=== PATIENT | male | born 1955 | race Caucasian/White ===

== ENCOUNTER 2016-10-15 15:30 | Inpatient (IN) | payer OTHER ==
[~2016-10-15] VITALS: Ht 190.5 cm; Wt 118.8 kg
[~2016-10-15 15:30] MED LIST: ANTIBIOTIC; BACTRIM DS 8001 TA1 PO; CATAPRES0.1 MG PO; CATAPRES0.2 MG PO; CIPROFLOXACIN500 MG PO; DAYPRO600 M1 PO; DIABETA5 MG PO; FAMVIR500 MG PO; FIORICET 325 MG1 TAB PO; FLEXERIL10 MG PO; HYDROCODONE BIT1 T11 PO; IBU-8800 MG PO; MEDROL DOSEPAK4 MG PO; METFORMIN1000 MG PO; MICRONASE2.5 MG PO; MOTRIN600 MG; NKHM; NYSTATIN CREAM15 GM T; Orphenadrine C100 MG PO; PROSCAR5 MG PO; ROBAXIN750 MG PO; SUBOXONE 8 MG-1 EACH SL; TAMSULOSIN HCL0.4 MG PO; TOBREX OPHTH S2.5 ML OPH; ULTRAM50 MG PO; VICODIN 5/500 505 MG PO; ZITHROMAX Z PA250 MG PO; ZOFRAN ODT4 MG SL; ZYLOPRIM100 MG PO; ZYRTEC10 MG PO
[2016-10-15 15:36] VITALS: BP 139/90
[2016-10-15 16:07] LABS: BASO % 0.4 % (0.0-1.0); EOS # 0.1 10*3/uL (0.0-0.4); EOS % 1.6 % (1.0-4.0); HEMATOCRIT 44.2 % (42.0-52.0); HEMOGLOBIN 14.3 g/dl (14.0-18.0); LYMPH # 2.5 10*3/uL (1.3-4.4); LYMPH % 37.3 % (27.0-41.0); MEAN CELL VOLUME 81.7 fl (80.0-94.0); MEAN CORPUSCULAR HGB 26.4 pg (27.0-31.0); MEAN CORPUSCULAR HGB CONC 32.4 g/dl (33.0-37.0); MEAN PLATELET VOLUME 9.5 fl (9.6-12.3); MONO # 0.5 10*3/uL (0.1-1.0); MONO % 7.2 % (3.0-9.0); NEUT # 3.5 10*3/uL (2.3-7.9); NEUT % 53.1 % (47.0-73.0); PLATELET COUNT AUTOMATED 179 10*3/uL (130-400); RED BLOOD COUNT 5.41 10*6/uL (4.50-5.90); RED CELL DISTRI WIDTH 12.1 % (0-14.5); WHITE BLOOD COUNT 6.7 10*3/uL (4.8-10.8)
[2016-10-15 16:18] LABS: INTERNATIONAL NORM RATIO 0.9 (2.0-3.5); PROTHROMBIN TIME 9.6 SECONDS (9.0-12.4)
[2016-10-15 16:25] LABS: ALBUMIN 3.8 gm/dl (3.1-4.5); ALKALINE PHOSPHATASE 96 U/L (45-117); BILIRUBIN, TOTAL 0.3 mg/dl (0.2-1.0); BUN 20 mg/dl (7-24); CARBON DIOXIDE 28 mmol/L (21-32); CHLORIDE 101 mmol/L (98-107); EST GLOM FILT AFRICAN AMERICAN > 60 ml/min; GLUCOSE 236 mg/dL (65-99); MAGNESIUM 1.6 mg/dL (1.5-2.1); POTASSIUM 4.9 mmol/L (3.5-5.1); SGOT/AST 20 IU/L (3-35); SGPT/ALT 34 U/L (12-78); SODIUM 139 mmol/L (136-145); TOTAL PROTEIN 7.5 gm/dL (6.4-8.2)
[2016-10-15 16:26] VITALS: BP 129/80
[2016-10-15 17:10] VITALS: BP 140/80
[2016-10-15] MEDS ORDERED: TOUJEO300 U/ML SC (17:18)
[2016-10-15 18:41] LABS: CKMB 1.5 ng/ml (0.5-3.6)
[2016-10-15 20:00] VITALS: BP 127/61
[2016-10-16] VITALS: BP 117/73
[2016-10-16 00:41] LABS: CKMB 1.2 ng/ml (0.5-3.6)
[2016-10-16 07:46] VITALS: BP 110/66
[2016-10-16 12:00] VITALS: BP 130/72
[2016-11-10] MEDS ORDERED: ASPIRIN81 M1 PO (13:08)
== END 2016-10-16 14:10 | disposition home or self-care (01) | DRG 206 ==
LOC: ED 15:30 → EDHOLD 16:42 → 4E 16:46
PROVIDERS: Internal Medicine; Registered Nurse
DX: M94.0 Chondrocostal junction syndrome [Tietze] (principal); E11.65 Type 2 diabetes mellitus with hyperglycemia; I10 Essential (primary) hypertension; E78.5 Hyperlipidemia, unspecified; E66.9 Obesity, unspecified; Z68.34 Body mass index [BMI] 34.0-34.9, adult; Z79.899 Other long term (current) drug therapy; Z98.890 Other specified postprocedural states; Z88.0 Allergy status to penicillin; Z80.42 Family history of malignant neoplasm of prostate

== ENCOUNTER 2017-09-02 10:53 | Emergency (ER) | payer OTHER ==
[~2017-09-02] VITALS: Ht 190.5 cm; Wt 117.9 kg
[~2017-09-02 10:53] MED LIST changes: +ASPIRIN81 M1 PO; +TOUJEO300 U/ML SC
[2017-09-02 11:00] VITALS: BP 120/77
[2017-09-02] MEDS ORDERED: CLINDAMYCIN HC300 MG PO (11:05)
[2017-09-02] MEDS ORDERED: ANAPROX DS550 MG PO (11:05)
== END 2017-09-02 11:12 | disposition home or self-care (01) ==
LOC: ED 10:53
DX: L72.3 Sebaceous cyst (principal); R22.31 Localized swelling, mass and lump, right upper limb; Z88.0 Allergy status to penicillin; Z79.82 Long term (current) use of aspirin; Z79.899 Other long term (current) drug therapy

== ENCOUNTER 2017-12-29 10:19 | Inpatient (IN) | payer OTHER ==
[2017-12-29] VITALS (7 sets, daily range): BP systolic 116–146; BP diastolic 61–86
[~2017-12-29] VITALS: Ht 190.5 cm; Wt 120.7 kg
--- NOTE | ~2017-12-29 | CON ---
[place], [place] REPORT OF CONSULTATION NAME: [facility]ZU[id number] UNIT #: [id number] ROOM: 405 DOCTOR: MELIA DAVALOS MD BIRTHDATE: [birth year] DOS: 12/30/2017 REASON FOR CONSULTATION: Peripheral edema and chest discomfort. HISTORY OF PRESENT ILLNESS: The patient is a 62-year-old man who has no previously documented coronary disease. He did have an evaluation in October and November of 2016 for atypical chest discomfort. An echocardiogram and stress test were felt to be low risk. Symptoms resolved. About a week ago, the patient's father . They took [place], [place] is about [place] [address] from here. [place] was [place] on the farm. The patient states that he did spend a lot of time walking and driving over the last few days. During this time, he did have some intermittent chest discomfort, which he described as an ache in his chest. It was not associated with dyspnea, diaphoresis or lightheadedness and was not exertional. He specifically stated that he [place] [facility] [place] [facility] and did not have any chest discomfort with that. Upon returning home in the last 48 hours, he noticed that his ankles were swollen. He became concerned and therefore came to the Emergency Room. Since he has been here, his electrocardiogram has been unremarkable. His cardiac troponin levels have been normal and a proBNP level was only minimally elevated at 238. PAST MEDICAL HISTORY: Includes: 1. Type 2 diabetes mellitus, which has been poorly controlled. 2. Benign prostatic hypertrophy. 3. Hyperlipidemia. 4. Obesity. 5. Exercise myocardial perfusion examination, 11/10/2016, ejection fraction 50%, no ischemia, low risk examination. 6. Echocardiogram, 12/04/2016, normal left ventricular size with ejection fraction 65%, stage 1 diastolic relaxation abnormalities, aortic sclerosis, but no other valve abnormalities. MEDICATIONS: Prior to admission: Metformin 1000 mg b.i.d., naproxen 550 mg b.i.d. p.r.n., tamsulosin 0.4 mg daily, Suboxone 8 mg sublingually q. 12 hours and glargine Insulin 24 units at bedtime. ALLERGIES: The patient lists allergies to PENICILLINS. FAMILY HISTORY: Negative for early coronary disease. His father had prostate cancer. SOCIAL HISTORY: The patient lives alone. As noted, he just returned home after the of his father [place] their [place]. The patient states that he has not consumed any alcohol since he was diagnosed as having diabetes 3 years ago and does not smoke or use illicit drugs. PHYSICAL EXAMINATION: GENERAL: Reveals well-nourished white male who is awake, alert and oriented. VITAL SIGNS: Pulse is 72 and regular, blood pressure is 141/78. He is [place], [place] REPORT OF CONSULTATION NAME: ANANTH OZUNA UNIT #: [id number] ROOM: 405 DOCTOR: MELIA DAVALOS MD BIRTHDATE: [birth year] afebrile. He weighs 120.6 kg and has a body mass index of 33.2. HEENT: Normocephalic and atraumatic. Extraocular muscles are intact. Sclerae are clear. Pupils equal, round and react to light. The oral mucosa is moist. Tongue is midline. NECK: Supple. He has no jugular distention. Carotids are full. He has no bruits. He has no neck or supraclavicular masses. LUNGS: Respirations are unlabored. His chest is clear to auscultation and percussion. He has no presacral edema or chest wall tenderness. CARDIOVASCULAR: His heart has a regular rhythm. He has a fourth heart sound, but no third heart sound or murmur. The PMI is not displaced. He has no precordial heave, lift or thrill. ABDOMEN: Soft and normally active without masses, organomegaly or bruits. EXTREMITIES: Showed trace edema of the ankles. Pedal pulses are easily palpated in the feet bilaterally. IMPRESSIONS: 1. Atypical chest pain. The patient denies any recent change in his exercise capacity and states that the pains were not exertional. They occurred after the recent of his father and he has no acute EKG changes or elevation in troponin. A stress test within the last year was a low risk exam. It is very unlikely that his current symptoms are cardiac in origin. 2. Pedal edema, most likely due to dietary indiscretion and traveling for long periods of time recently in an automobile. This is resolving spontaneously. 3. Type 2 diabetes mellitus, on insulin. PLAN: I will repeat an echocardiogram for left ventricular function and repeat a chest x-ray since the initial chest x-ray suggested the possibility of pneumonia. If those studies are normal, then no further cardiac workup would be considered. Specifically, I do not believe the patient requires a stress test at this time. I thank the hospitalist physicians for asking our advice regarding the patient's care. MELIA DAVALOS MD CM:CONSTR:REPORT OF CONSULTATION 1411 12/30/17 1430 interface
[~2017-12-29 10:19] MED LIST changes: +ANAPROX DS550 MG PO; +CLINDAMYCIN HC300 MG PO; +TOUJEO SOL300 UNIT/1 SQ; -TOUJEO300 U/ML SC
[2017-12-29 10:48] LABS: BASO % 0.7 % (0.0-1.0); EOS # 0.1 10*3/uL (0.0-0.4); EOS % 2.6 % (1.0-4.0); HEMATOCRIT 38.9 % (42.0-52.0); HEMOGLOBIN 12.6 g/dl (14.0-18.0); LYMPH # 1.5 10*3/uL (1.3-4.4); LYMPH % 36.6 % (27.0-41.0); MEAN CELL VOLUME 83.7 fl (80.0-94.0); MEAN CORPUSCULAR HGB 27.1 pg (27.0-31.0); MEAN CORPUSCULAR HGB CONC 32.4 g/dl (33.0-37.0); MEAN PLATELET VOLUME 9.9 fl (9.6-12.3); MONO # 0.3 10*3/uL (0.1-1.0); MONO % 8.1 % (3.0-9.0); NEUT # 2.2 10*3/uL (2.3-7.9); NEUT % 51.8 % (47.0-73.0); PLATELET COUNT AUTOMATED 165 10*3/uL (130-400); RED BLOOD COUNT 4.65 10*6/uL (4.50-5.90); RED CELL DISTRI WIDTH 12.4 % (0-14.5); WHITE BLOOD COUNT 4.2 10*3/uL (4.8-10.8)
[2017-12-29 11:06] LABS: ALBUMIN 3.3 gm/dl (3.1-4.5); ALKALINE PHOSPHATASE 73 U/L (45-117); BUN 13 mg/dl (7-24); CHLORIDE 108 mmol/L (98-107); CREATININE 0.73 mg/dL (0.70-1.30); LIPASE 333 U/L (73-393); POTASSIUM 4.1 mmol/L (3.5-5.1); SGOT/AST 22 IU/L (3-35); SGPT/ALT 42 U/L (12-78); SODIUM 143 mmol/L (136-145); TOTAL PROTEIN 6.7 gm/dL (6.4-8.2)
[2017-12-29 11:08] LABS: TROPONIN I < 0.015 ng/ml (<0.045)
[2017-12-29] MEDS ORDERED: NAPROXEN550 MG PO (12:32)
[2017-12-30] VITALS: BP 125/62
[2017-12-30 04:00] VITALS: BP 121/72
[2017-12-30 07:35] LABS: BASO % 0.4 % (0.0-1.0); EOS # 0.2 10*3/uL (0.0-0.4); EOS % 3.7 % (1.0-4.0); HEMATOCRIT 37.3 % (42.0-52.0); HEMOGLOBIN 12.3 g/dl (14.0-18.0); LYMPH # 1.9 10*3/uL (1.3-4.4); LYMPH % 38.4 % (27.0-41.0); MEAN CELL VOLUME 83.8 fl (80.0-94.0); MEAN CORPUSCULAR HGB 27.6 pg (27.0-31.0); MONO # 0.4 10*3/uL (0.1-1.0); MONO % 8.4 % (3.0-9.0); NEUT # 2.4 10*3/uL (2.3-7.9); NEUT % 48.9 % (47.0-73.0); PLATELET COUNT AUTOMATED 158 10*3/uL (130-400); RED BLOOD COUNT 4.45 10*6/uL (4.50-5.90); RED CELL DISTRI WIDTH 12.4 % (0-14.5); WHITE BLOOD COUNT 4.9 10*3/uL (4.8-10.8)
[2017-12-30 08:00] VITALS: BP 139/86
[2017-12-30 08:00] LABS: BUN 12 mg/dl (7-24); CHLORIDE 108 mmol/L (98-107); CHOLESTEROL 173 mg/dL (<200); PHOSPHOROUS 2.9 mg/dL (2.5-4.9); POTASSIUM 3.9 mmol/L (3.5-5.1); SGOT/AST 21 IU/L (3-35); SGPT/ALT 40 U/L (12-78); SODIUM 145 mmol/L (136-145); TOTAL PROTEIN 6.2 gm/dL (6.4-8.2); TRIGLYCERIDES 90 mg/dl (<150); VLDL CHOLESTEROL 18 mg/dL (6-40)
[2017-12-30 08:06] LABS: ALKALINE PHOSPHATASE 62 U/L (45-117); FREE T4 1.16 ng/dl (0.76-1.46); HDL CHOLESTEROL 56 mg/dl (40-60); LDL CHOLESTEROL 99 mg/dL (9-159); THYROID STIM HORMONE (HS) 0.218 uIU/ml (0.358-4.75)
[2017-12-30 08:29] LABS: VITAMIN D, 25-HYDROXY 18.7 ng/mL (30-100)
[2017-12-30 12:00] VITALS: BP 141/78
[2017-12-30] MEDS ORDERED: AVPAK AZITHROM250 M1 PO (14:52)
[2017-12-30] MEDS ORDERED: VITAMIN D31000 UNIT PO (14:52)
== END 2017-12-30 15:27 | disposition home or self-care (01) | DRG 313 ==
LOC: ED 10:19 → EDHOLD 11:14 → 4E 11:50
PROVIDERS: Family Medicine; Physician Assistant
DX: R07.89 Other chest pain (principal); I25.2 Old myocardial infarction; J18.1 Lobar pneumonia, unspecified organism; E11.65 Type 2 diabetes mellitus with hyperglycemia; E87.2 Acidosis; E87.8 Other disorders of electrolyte and fluid balance, not elsewhere classified; E44.1 Mild protein-calorie malnutrition; I50.32 Chronic diastolic (congestive) heart failure; D64.9 Anemia, unspecified; M54.42 Lumbago with sciatica, left side; E66.9 Obesity, unspecified; G89.29 Other chronic pain; N40.0 Benign prostatic hyperplasia without lower urinary tract symptoms; E05.90 Thyrotoxicosis, unspecified without thyrotoxic crisis or storm; E78.5 Hyperlipidemia, unspecified; Z88.0 Allergy status to penicillin; Z79.890 Hormone replacement therapy; Z79.4 Long term (current) use of insulin; Z83.2 Family history of diseases of the blood and blood-forming organs and certain disorders involving the immune mechanism; Z83.3 Family history of diabetes mellitus; Z80.42 Family history of malignant neoplasm of prostate; Z79.899 Other long term (current) drug therapy; Z68.32 Body mass index [BMI] 32.0-32.9, adult

== ENCOUNTER → 2017-12-31 | Outpatient (CLI) | payer OTHER ==
[~2017-12-31] MED LIST changes: +AVPAK AZITHROM250 M1 PO; +NAPROXEN550 MG PO; +VITAMIN D31000 UNIT PO
== END | disposition home or self-care (01) ==
LOC: RAD 09:59
DX: J18.9 Pneumonia, unspecified organism (principal)

== ENCOUNTER → 2018-06-17 | Outpatient (CLI) | payer OTHER ==
[2018-06-17 11:22] LABS: BASO % 0.8 % (0.0-1.0); EOS # 0.1 10*3/uL (0.0-0.4); EOS % 2.4 % (1.0-4.0); HEMATOCRIT 46.5 % (42.0-52.0); HEMOGLOBIN 15.5 g/dl (14.0-18.0); LYMPH # 1.8 10*3/uL (1.3-4.4); LYMPH % 35.2 % (27.0-41.0); MEAN CELL VOLUME 81.3 fl (80.0-94.0); MEAN CORPUSCULAR HGB 27.1 pg (27.0-31.0); MEAN CORPUSCULAR HGB CONC 33.3 g/dl (33.0-37.0); MEAN PLATELET VOLUME 9.9 fl (9.6-12.3); MONO # 0.4 10*3/uL (0.1-1.0); MONO % 7.7 % (3.0-9.0); NEUT # 2.7 10*3/uL (2.3-7.9); NEUT % 53.7 % (47.0-73.0); PLATELET COUNT AUTOMATED 182 10*3/uL (130-400); RED BLOOD COUNT 5.72 10*6/uL (4.50-5.90); RED CELL DISTRI WIDTH 12.3 % (0-14.5); WHITE BLOOD COUNT 5.1 10*3/uL (4.8-10.8)
[2018-06-17 11:49] LABS: ALBUMIN 3.8 gm/dl (3.1-4.5); BUN 16 mg/dl (7-24); CHLORIDE 102 mmol/L (98-107); CREATININE 0.88 mg/dL (0.70-1.30); POTASSIUM 4.3 mmol/L (3.5-5.1); SGOT/AST 12 IU/L (3-35); SGPT/ALT 21 U/L (12-78); SODIUM 140 mmol/L (136-145)
[2018-06-17 11:53] LABS: ALKALINE PHOSPHATASE 111 U/L (45-117); TOTAL PROTEIN 7.7 gm/dL (6.4-8.2)
== END | disposition home or self-care (01) ==
LOC: LAB 10:44
PROVIDERS: Family Medicine
DX: Z12.5 Encounter for screening for malignant neoplasm of prostate (principal); E11.9 Type 2 diabetes mellitus without complications

== ENCOUNTER → 2018-11-13 | Outpatient (CLI) | payer OTHER | END | disposition home or self-care (01) | LOC: US 15:00 | DX: N50.3 Cyst of epididymis (principal); R30.0 Dysuria ==

== ENCOUNTER → 2021-06-29 | Outpatient (CLI) | payer OTHER | END | disposition home or self-care (01) | LOC: US 06-09 13:00 | PROVIDERS: ATTEND Nurse Practitioner Primary Care | DX: R79.89 Other specified abnormal findings of blood chemistry (principal) ==

== ENCOUNTER → 2021-10-05 | Outpatient (CLI) | payer MEDICARE, OTHER ==
[~2021-10-05] MED LIST changes: +ACYCLOVIR400 MG PO; +ADMELOG100 UNIT/1 SQ; +JARDIANCE10 MG PO; +TOPROL XL25 MG PO; +ZESTRIL10 MG PO
== END | disposition home or self-care (01) ==
LOC: CARD 00:07
PROVIDERS: ATTEND Internal Medicine Cardiovascular Disease
DX: I49.3 Ventricular premature depolarization (principal); R94.31 Abnormal electrocardiogram [ECG] [EKG]; Z87.898 Personal history of other specified conditions

== ENCOUNTER 2021-10-24 12:38 | Emergency (ER) | payer OTHER ==
[~2021-10-24] VITALS: Ht 190.5 cm; Wt 93.4 kg
[2021-10-24 12:44] VITALS: BP 137/66
[2021-10-24 13:05] LABS: BASO % 0.3 % (0.0-1.0); EOS # 0.1 10*3/uL (0.0-0.4); EOS % 1.7 % (1.0-4.0); HEMATOCRIT 44.1 % (42.0-52.0); LYMPH # 1.9 10*3/uL (1.3-4.4); LYMPH % 30.1 % (27.0-41.0); MEAN CELL VOLUME 82.4 fl (80.0-94.0); MEAN CORPUSCULAR HGB 27.1 pg (27.0-31.0); MEAN CORPUSCULAR HGB CONC 32.9 g/dl (33.0-37.0); MONO # 0.4 10*3/uL (0.1-1.0); MONO % 5.7 % (3.0-9.0); NEUT # 3.9 10*3/uL (2.3-7.9); NEUT % 61.9 % (47.0-73.0); PLATELET COUNT AUTOMATED 207 10*3/uL (130-400); RED BLOOD COUNT 5.35 10*6/uL (4.50-5.90); RED CELL DISTRI WIDTH 12.6 % (0-14.5); WHITE BLOOD COUNT 6.4 10*3/uL (4.8-10.8)
[2021-10-24 13:17] LABS: ACT PARTIAL THROMBO TIME 26.5 SECONDS (20.0-32.1)
[2021-10-24 13:24] LABS: ALBUMIN 3.7 gm/dl (3.1-4.5); BUN 16 mg/dl (7-24); CHLORIDE 101 mmol/L (98-107); CREATININE 0.99 mg/dL (0.70-1.30); LIPASE 45 U/L (73-393); POTASSIUM 4.1 mmol/L (3.5-5.1); SGOT/AST 15 IU/L (3-35); SGPT/ALT 23 U/L (12-78); SODIUM 137 mmol/L (136-145); TOTAL PROTEIN 7.4 gm/dL (6.4-8.2)
[2021-10-24 13:25] LABS: ALKALINE PHOSPHATASE 79 U/L (45-117)
== END 2021-10-24 16:09 | disposition home or self-care (01) ==
LOC: ED 12:38
PROVIDERS: Emergency Medicine
DX: R42 Dizziness and giddiness (principal); I10 Essential (primary) hypertension; E11.9 Type 2 diabetes mellitus without complications; Z88.0 Allergy status to penicillin; Z79.899 Other long term (current) drug therapy; Z90.49 Acquired absence of other specified parts of digestive tract

== ENCOUNTER 2021-11-09 15:32 | Emergency (ER) | payer OTHER, MEDICAID ==
[~2021-11-09] VITALS: Wt 93.4 kg
[2021-11-09 15:51] VITALS: BP 107/54
[2021-11-09 16:22] LABS: BASO % 0.5 % (0.0-1.0); EOS # 0.1 10*3/uL (0.0-0.4); EOS % 2.2 % (1.0-4.0); LYMPH # 1.7 10*3/uL (1.3-4.4); LYMPH % 30.3 % (27.0-41.0); MEAN CELL VOLUME 82.2 fl (80.0-94.0); MEAN CORPUSCULAR HGB 27.1 pg (27.0-31.0); MEAN CORPUSCULAR HGB CONC 32.9 g/dl (33.0-37.0); MEAN PLATELET VOLUME 9.1 fl (9.6-12.3); MONO # 0.4 10*3/uL (0.1-1.0); MONO % 7.8 % (3.0-9.0); NEUT # 3.2 10*3/uL (2.3-7.9); PLATELET COUNT AUTOMATED 195 10*3/uL (130-400); RED BLOOD COUNT 4.99 10*6/uL (4.50-5.90); RED CELL DISTRI WIDTH 12.4 % (0-14.5); WHITE BLOOD COUNT 5.5 10*3/uL (4.8-10.8)
[2021-11-09 16:38] LABS: ALBUMIN 3.8 gm/dl (3.1-4.5); ALKALINE PHOSPHATASE 79 U/L (45-117); BUN 17 mg/dl (7-24); CHLORIDE 105 mmol/L (98-107); CREATININE 0.95 mg/dL (0.70-1.30); POTASSIUM 4.3 mmol/L (3.5-5.1); SGOT/AST 12 IU/L (3-35); SGPT/ALT 22 U/L (12-78); SODIUM 139 mmol/L (136-145); TOTAL PROTEIN 7.2 gm/dL (6.4-8.2)
== END 2021-11-09 17:02 | disposition home or self-care (01) ==
LOC: ED 15:32
PROVIDERS: Family Medicine
DX: E11.65 Type 2 diabetes mellitus with hyperglycemia (principal); I10 Essential (primary) hypertension; Z88.0 Allergy status to penicillin; Z79.899 Other long term (current) drug therapy; Z90.49 Acquired absence of other specified parts of digestive tract

== ENCOUNTER → 2021-12-12 | Outpatient (CLI) | payer OTHER, MEDICAID | END | disposition home or self-care (01) | LOC: CT 12-09 13:00 | PROVIDERS: ATTEND Nurse Practitioner Primary Care | DX: I25.10 Atherosclerotic heart disease of native coronary artery without angina pectoris (principal); R07.9 Chest pain, unspecified; I28.8 Other diseases of pulmonary vessels; R06.02 Shortness of breath; K76.0 Fatty (change of) liver, not elsewhere classified ==

== ENCOUNTER → 2023-01-04 | Outpatient (CLI) | payer OTHER, MEDICAID ==
[2023-01-04 14:27] LABS: VITAMIN D, 25-HYDROXY 34.5 ng/mL (30-100)
[2023-01-04 17:21] LABS: FREE T4 1.48 ng/dl (0.89-1.76)
== END | disposition home or self-care (01) ==
LOC: LAB 13:11
PROVIDERS: ATTEND Internal Medicine
DX: E78.2 Mixed hyperlipidemia (principal); E55.9 Vitamin D deficiency, unspecified; Z12.5 Encounter for screening for malignant neoplasm of prostate

== ENCOUNTER 2024-01-18 19:52 | Emergency (ER) | payer OTHER, MEDICAID ==
[~2024-01-18] VITALS: Ht 190.5 cm; Wt 76.7 kg
[2024-01-18 19:57] VITALS: BP 125/43
[2024-01-18] MEDS ORDERED: METFORMIN HYDR500 MG PO (19:59)
== END 2024-01-18 20:21 | disposition home or self-care (01) ==
LOC: ED 19:52
DX: E11.649 Type 2 diabetes mellitus with hypoglycemia without coma (principal); I10 Essential (primary) hypertension; Z88.0 Allergy status to penicillin; Z90.49 Acquired absence of other specified parts of digestive tract

== ENCOUNTER 2024-03-09 14:36 | Emergency (ER) | payer OTHER, MEDICAID ==
[~2024-03-09] VITALS: Ht 190.5 cm; Wt 83.9 kg
[~2024-03-09 14:36] MED LIST changes: +METFORMIN HYDR500 MG PO
[2024-03-09 14:46] VITALS: BP 117/64
[2024-03-09] MEDS ORDERED: BUPRENORPHINE-1 EAC2 SL (14:48)
[2024-03-09] MEDS ORDERED: ALLOPURINOL100 MG PO (14:48)
[2024-03-09] MEDS ORDERED: Tetracaine Hydrochloride 0.5% 4 ML BOT OPH ONE (14:55)
[2024-03-09] MEDS ORDERED: FLUORESCEIN SODIUM 1 MG STRIP OPH ONE (14:55)
[2024-03-09] MEDS ORDERED: OFLOXACIN 10 ML10 M2 OS (15:13)
[2024-03-09] MEDS ORDERED: OFLOXACIN 0.3% 5 ML BOTTLE OPH ONE (15:15)
== END 2024-03-09 15:20 | disposition home or self-care (01) ==
LOC: ED 14:36
DX: S05.02XA Injury of conjunctiva and corneal abrasion without foreign body, left eye, initial encounter (principal); E78.00 Pure hypercholesterolemia, unspecified; E78.5 Hyperlipidemia, unspecified; D64.9 Anemia, unspecified; I10 Essential (primary) hypertension; E11.9 Type 2 diabetes mellitus without complications; Z88.0 Allergy status to penicillin; Z90.49 Acquired absence of other specified parts of digestive tract; X58.XXXA Exposure to other specified factors, initial encounter; Y93.89 Activity, other specified; Y92.89 Other specified places as the place of occurrence of the external cause; Y99.8 Other external cause status